=== PATIENT | male | born 1970 | race Caucasian/White ===

== ENCOUNTER 2022-07-22 10:24 | Emergency (ER) | payer OTHER ==
[2022-07-22] MEDS ORDERED: ONDANSETRON ODT 4 MG TAB PO STA (10:43)
[2022-07-22] MEDS ORDERED: KETOROLAC 15 MG/ML 1 ML VIAL IM STA (10:43)
--- NOTE | 2022-07-22 10:45 | ED ---
General Adult HPI - General Stated complaint: Mental Health Time Seen by Provider: 07/22/22 10:27 Source: patient, RN notes reviewed, old records reviewed - History of Present Illness Initial comments: This is a 52-year-old male who presents emergency department from the jail under a petition. Patient was there and making statements that he wanted to harm himself. Patient told me he does want harm himself because he cannot look at the world anymore because he feels so many panic things going on and he doesn't want to be cold and distant and so he would rather be . Patient denies doing any drugs or alcohol he does again living in jail. Patient states his whole body always hurts but no new pain no cough no fever. Patient denies any chest pain or difficulty breathing. - Related Data Home Medications Medication Instructions Recorded Confirmed ALPRAZolam [Xanax] 0.5 mg PO TID@0800,1600,2200 07/22/22 07/22/22 Acetaminophen Tab [Tylenol] 650 mg PO Q6H PRN 07/22/22 07/22/22 Albuterol Sulfate [Ventolin HFA] 2 puff INHALATION RT-Q6H PRN 07/22/22 07/22/22 Aspirin EC [Ecotrin Low Dose] 81 mg PO DAILY 07/22/22 07/22/22 Atorvastatin [Lipitor] 40 mg PO HS@199907/22/22 07/22/22 Buprenorphine [Butrans 15 MCG/HR] 1 patch TRANSDERM TH@199907/22/22 07/22/22 Colchicine 0.6 mg PO BID@08,199907/22/22 07/22/22 Famotidine [Pepcid] 20 mg PO DAILY@79907/22/22 07/22/22 Fluticasone/Vilanterol [Breo 1 puff INHALATION RT-DAILY 07/22/22 07/22/22 Ellipta 200-25 Mcg Inhaler] Furosemide [Lasix] 40 mg PO DAILY@79907/22/22 07/22/22 Ibuprofen [Motrin] 600 mg PO Q6H PRN 07/22/22 07/22/22 Melatonin 10 mg PO HS 07/22/22 07/22/22 Menthol [Biofreeze] 1 applic TOPICAL Q4H PRN 07/22/22 07/22/22 Montelukast [Singulair] 10 mg PO HS@199907/22/22 07/22/22 Multivitamins, Thera [Multivitamin 1 tab PO DAILY@0807/22/22 07/22/22 (formulary)] Ondansetron [Zofran] 4 mg PO Q6H PRN 07/22/22 07/22/22 Potassium Chloride ER [K-Dur 20] 20 meq PO DAILY@0800 07/22/22 07/22/22 Sennosides/Docusate Sodium [Senna 1 tab PO DAILY PRN 07/22/22 07/22/22 Plus 8.6-50 mg Tablet] Sertraline [Zoloft] 50 mg PO DAILY@0800 07/22/22 07/22/22 Sertraline [Zoloft] 100 mg PO DAILY@0800 07/22/22 07/22/22 Topiramate [Topamax] 25 mg PO DAILY@0800 07/22/22 07/22/22 Topiramate [Topamax] 100 mg PO HS@199907/22/22 07/22/22 amLODIPine 10 mg PO DAILY 07/22/22 07/22/22 lamoTRIgine [LaMICtal] 25 mg PO BID@0800,199907/22/22 07/22/22 methocarbamoL [Robaxin] 500 mg PO Q8HR@0000,0800,1600 07/22/22 07/22/22 polyethylene glycoL 3350 [Miralax] 17 gm PO DAILY PRN 07/22/22 07/22/22 traMADol HCL 50 mg PO Q6H PRN 07/22/22 07/22/22 Allergies Allergy/AdvReac Type Severity Reaction Status Date / Time No Known Allergies Allergy Verified 07/22/22 10:53 Review of Systems ROS Statement: Those systems with pertinent positive or pertinent negative responses have been documented in the HPI. ROS Other: All systems not noted in ROS Statement are negative. General Exam - General Exam Comments Initial Comments: GENERAL: Patient is well-developed and well-nourished. Patient is nontoxic and well- hydrated and is in mild distress. ENT: Neck is soft and supple. No significant lymphadenopathy is noted. Oropharynx is clear. Moist mucous membranes. Neck has full range of motion without eliciting any pain. EYES: The sclera were anicteric and conjunctiva were pink and moist. Extraocular movements were intact and pupils were equal round and reactive to light. Eyelids were unremarkable. PULMONARY: Unlabored respirations. Good breath sounds bilaterally. No audible rales rhonchi or wheezing was noted. CARDIOVASCULAR: There is a regular rate and rhythm without any murmurs gallops or rubs. ABDOMEN: Soft and nontender with normal bowel sounds. SKIN: Skin is clear with no lesions or rashes and otherwise unremarkable. NEUROLOGIC: Patient is alert and oriented x3. Cranial nerves II through XII are grossly intact. Motor and sensory are also intact. Normal speech, volume and content. Symmetrical smile. MUSCULOSKELETAL: Normal extremities with adequate strength and full range of motion. LYMPHATICS: No significant lymphadenopathy is noted PSYCHIATRIC: Normal psychiatric evaluation. Course Vital Signs 07/22/22 07/22/22 10:32 11:15 Temperature 98.5 F Pulse Rate 79 Respiratory 22 Rate Blood Pressure 146/77 O2 Sat by Pulse 98 Oximetry Medical Decision Making - Medical Decision Making Was pt. sent in by a medical professional or institution (, PA, BUTCHER SCULLION, urgent care, hospital, or jail...) When possible be specific @ -Patient was sent in for evaluation from the jail Did you speak to anyone other than the patient for history (EMS, parent, family, police, friend...)? What history was obtained from this source @ -No Did you review nursing and triage notes (agree or disagree)? Why? @ -I reviewed and agree with nursing and triage notes Were old charts reviewed (outside hosp., previous admission, EMS record, old EKG, old radiological studies, urgent care reports/EKG's, jail records)? Report findings @ -No old charts were reviewed Differential Diagnosis (chest pain, altered mental status, abdominal pain women, abdominal pain men, vaginal bleeding, weakness, fever, dyspnea, syncope, headache, dizziness, GI bleed, back pain, seizure, CVA, palpatations, mental health, musculoskeletal)? @ -Differential Mental Health Depression, anxiety, bipolar, psychosis, schizophrenia, borderline personality, situational depression, adjustment disorder, behavioral disorder, brain tumor, malingering, substance abuse, encephalopathy, medication reaction, dementia, hypothyroidism, degenerative neurologic disorder, lupus.... This is not meant to be all-inclusive list EKG interpreted by me (3pts min.). @ -As above X-rays interpreted by me (1pt min.). @ -None done CT interpreted by me (1pt min.). @ -None done U/S interpreted by me (1pt. min.). @ -None done What testing was considered but not performed or refused? (CT, X-rays, U/S, labs)? Why? @ -None What meds were considered but not given or refused? Why? @ -None Did you discuss the management of the patient with other professionals (professionals i.e. , PA, BUTCHER SCULLION, lab, RT, psych nurse, high school social studies tutor, barrel ribs solderer, teacher, enforcement safety officer, telephonic case manager)? Give summary @ -I spoke with the psych nurse about patient's admission she agreed the patient needed to be admitted but he will need transfer because he is over R units weight limit Was smoking cessation discussed for >3mins.? @ -No Was critical care preformed (if so, how long)? @ -No Were there social determinants of health that impacted care today? How? (Homelessness, low income, unemployed, alcoholism, drug addiction, transportation, low edu. Level, literacy, decrease access to med. care, senior living, rehab)? @ -No Was there de-escalation of care discussed even if they declined (Discuss DNR or withdrawal of care, Hospice)? DNR status @ -No What co-morbidities impacted this encounter? (DM, HTN, Smoking, COPD, CAD, Cancer, CVA, ARF, Chemo, Hep., AIDS, mental health diagnosis, sleep apnea, morbid obesity)? @ -None Was patient admitted / discharged? Hospital course, mention meds given and route, prescriptions, significant lab abnormalities, going to OR and other pertinent info. @ -Patient was seen by EPS and I filled out a clinical certification the patient will need to be admitted but will need to be an outside facility because of the patient's weight. Undiagnosed new problem with uncertain prognosis? @ -No Drug Therapy requiring intensive monitoring for toxicity (Heparin, Nitro, Insulin, Cardizem)? @ -No Were any procedures done? @ -No Diagnosis/symptom? @ -Ideations Acute, or Chronic, or Acute on Chronic? @ -Acute Uncomplicated (without systemic symptoms) or Complicated (systemic symptoms)? @ -Complicated Side effects of treatment? @ -No Exacerbation, Progression, or Severe Exacerbation? @ -No Poses a threat to life or bodily function? How? (Chest pain, [place], [place], pneumonia, PE, COPD, DKA, ARF, appy, cholecystitis, CVA, Diverticulitis, Homicidal, Suicidal, threat to staff... and all critical care pts) @ -S patient could harm himself if he doesn't get appropriate treatment Diagnosis/symptom? @ -Depression Acute, or Chronic, or Acute on Chronic? @ -Chronic Uncomplicated (without systemic symptoms) or Complicated (systemic symptoms)? @ -default Side effects of treatment? @ -none Exacerbation, Progression, or Severe Exacerbation] @ -no Poses a threat to life or bodily function? @ -no - Lab Data Lab Results 07/22/22 Range/Units 12:00 Urine Opiates Screen Not Detected (NotDetected) Ur Oxycodone Screen Not Detected (NotDetected) Urine Methadone Screen Not Detected (NotDetected) Ur Propoxyphene Screen Not Detected (NotDetected) Ur Barbiturates Screen Not Detected (NotDetected) U Tricyclic Antidepress Not Detected (NotDetected) Ur Phencyclidine Scrn Not Detected (NotDetected) Ur Amphetamines Screen Not Detected (NotDetected) U Methamphetamines Scrn Not Detected (NotDetected) U Benzodiazepines Scrn Detected H (NotDetected) Urine Cocaine Screen Not Detected (NotDetected) U Marijuana (THC) Screen Detected H (NotDetected) Disposition Clinical Impression: Depression, Suicidal ideation Disposition: TRANSFER TO PSYCH HOSP/UNIT Referrals: None,Stated [Primary Care Provider] - 1-2 days Time of Disposition: 14:50
[2022-07-22 11:15] VITALS: TEMP 98.5
[2022-07-22 12:34] LABS: Amphetamine Screen,Urine Not Detected (NotDetected); Barbiturate Screen,Urine Not Detected (NotDetected); Benzodiazepines Screen,Urine Detected (NotDetected); Cocaine Screen,Urine Not Detected (NotDetected); Methadone Screen, Urine Not Detected (NotDetected); Opiate Screen,Urine Not Detected (NotDetected); Oxycodone Screen, Urine Not Detected (NotDetected); Phencyclidine Screen,Urine Not Detected (NotDetected); Tricyclic Antidepressant,Urine Not Detected (NotDetected); Urn Cannabinoid Scrn Detected (NotDetected)
[2022-07-22] MEDS ORDERED: traMADol 50 MG TAB PO STA (16:32)
[2022-07-22 20:27] LABS: HCT 41.3 % (39.0-53.0); MCH 30.4 pg (25.0-35.0); MCHC 33.9 g/dL (31.0-37.0); MCV 89.8 fL (80.0-100.0); Mean Platelet Volume 8.3; Platelet Count 176 k/uL (150-450)
[2022-07-22 20:32] LABS: ALT 90 U/L (4-49); AST 61 U/L (17-59); African American GFR (CKD) >90 (>60 ml/min/1.73 sqM); Albumin 3.6 g/dL (3.5-5.0); Alkaline Phosphatase 107 U/L (38-126); Anion Gap 6 mmol/L; Blood Urea Nitrogen 16 mg/dL (9-20); Calcium 8.7 mg/dL (8.4-10.2); Carbon Dioxide 26 mmol/L (22-30); Chloride 108 mmol/L (98-107); Glucose 110 mg/dL (74-99); Non-African American GFR(CKD) >90 (>60 ml/min/1.73 sqM); Potassium 4.2 mmol/L (3.5-5.1); Sodium 140 mmol/L (137-145); Total Bilirubin 0.4 mg/dL (0.2-1.3); Total Protein 6.6 g/dL (6.3-8.2)
[2022-07-22 20:46] LABS: Eosinophils # (M) 0.25 k/uL (0-0.7); Lymphocytes # (M) 1.35 k/uL (1.0-4.8); Monocytes # (M) 0.65 k/uL (0-1.0); Neutrophils # (M) 2.75 k/uL (1.3-7.7); Neutrophils % (M) 55 %; Nucleated Red Blood Cells 0 /100 WBC (0-0); Polychromasia Present; Total Cells Counted 100
[2022-07-22 20:47] LABS: Large Platelets Present
[2022-07-22] MEDS ORDERED: traMADol 50 MG TAB PO PRN (21:06)
[2022-07-22] MEDS ORDERED: ACETAMINOPHEN TAB 325 MG TAB PO PRN (21:06)
[2022-07-22] MEDS ORDERED: ALBUTEROL HFA INHALER INHALATION PRN (21:06)
[2022-07-22] MEDS: ONDANSETRON 4 MG TAB PO PRN (22:36)
[2022-07-22] MEDS: ALPRAZolam 0.5 MG TAB PO SCH (22:36)
[2022-07-23] MEDS: methocarbamoL 500 MG TAB PO SCH ×2 (00:36→09:27)
[2022-07-23] MEDS ORDERED: TOPIRAMATE 25 MG TAB PO SCH (08:00)
[2022-07-23] MEDS ORDERED: FAMOTIDINE 20 MG TAB PO SCH (08:00)
[2022-07-23] MEDS ORDERED: SYMBICORT 160-4.5 MCG INHALER INHALATION SCH (08:00)
[2022-07-23] MEDS ORDERED: SERTRALINE 100 MG TAB PO SCH (08:00)
[2022-07-23] MEDS ORDERED: lamoTRIgine 25 MG TAB PO SCH (08:00)
[2022-07-23] MEDS ORDERED: FUROSEMIDE 40 MG TAB PO SCH (08:00)
[2022-07-23] MEDS ORDERED: ASPIRIN 81 MG PO SCH (09:00)
[2022-07-23] MEDS ORDERED: amLODIPine 10 MG TAB PO SCH (09:00)
[2022-07-23] MEDS: ALPRAZolam 0.5 MG TAB PO SCH (09:00)
[2022-07-23 09:14] LABS: Appearance,Urine Clear (Clear); Bilirubin,Urine Negative (Negative); Blood,Urine Negative (Negative); Color,Urine Yellow; Glucose,Urine (UA) Negative (Negative); Ketones,Urine Negative (Negative); Leukocyte Esterase,Urine Negative (Negative); Nitrite,Urine Negative (Negative); Protein,Urine Negative (Negative); Urobilinogen,Urine <2.0 mg/dL (<2.0)
[2022-07-23] MEDS: ONDANSETRON 4 MG TAB PO PRN (09:25)
[2022-07-23 14:40] VITALS: BP 158/88; PULSE 68; RESP 18
[2022-07-23] MEDS ORDERED: MONTELUKAST 10 MG TAB PO SCH (20:00)
[2022-07-23] MEDS ORDERED: TOPIRAMATE 100 MG TAB PO SCH (20:00)
[2022-07-23] MEDS ORDERED: ATORVASTATIN 40 MG TAB PO SCH (20:00)
[2022-07-23] MEDS ORDERED: MELATONIN 5 MG TABLET PO SCH (21:00)
[2022-07-29] MEDS ORDERED: BUPRENORPHINE TRANSDERM SCH (20:00)
== END 2022-07-23 16:03 | disposition home or self-care (01) ==
LOC: EC 10:24
DX: F32.A Depression, unspecified (principal); R45.851 Suicidal ideations; Z20.822 Contact with and (suspected) exposure to COVID-19
CPT/HCPCS: 99285 ×2; 96372; 82075; 90471; 36415; 80053; 85025; 81003; 80306; 87635; J1885

== ENCOUNTER 2022-10-19 00:04 | Observation (INO) | payer MEDICARE, OTHER ==
[2022-10-19] MEDS ORDERED: ASPIRIN 81 MG PO STA (00:53)
[2022-10-19] MEDS ORDERED: MAG HYDROX/AL HYDROX/SIMETH 30 ML, HYOSCYAMINE ELIXIR 10 ML, LIDOCAINE 2% GLYDO JELLY 1... PO STA ×3 (00:55)
--- NOTE | 2022-10-19 00:58 | ED ---
Chest Pain HPI - General Source: patient Mode of arrival: EMS Limitations: no limitations - History of Present Illness MD Complaint: chest pain -: hour(s) Onset: during rest Pain Location: substernal Pain Radiation: LUE Severity: severe Quality: aching Consistency: constant Improves With: nothing Worsens With: nothing Anginal Symptoms: nausea Treatments Prior to Arrival: none <Marcus Terry - Last Filed: 10/19/22 07:22> <Reji Ramon - Last Filed: 10/19/22 07:55> - General Chief Complaint: Chest Pain Stated Complaint: Chest pain - History of Present Illness Initial Comments: This patient is 52-year-old man who presents evaluation for substernal aching pain. At times it has a squeezing component at times it has a burning component. He has had episodes of this going back for a couple of days now. She states that it will come on and lasts for few hours. Tonaditi's episode was different there was something that felt like he was going toward his left shoulder. He has had some nausea. No diaphoresis, dyspnea, vomiting. Patient denies previous cardiac testing. (Marcus eTrry) - Related Data Home Medications Medication Instructions Recorded Confirmed ALPRAZolam [Xanax] 0.5 mg PO TID@0800,1600,2200 07/22/22 07/22/22 Acetaminophen Tab [Tylenol] 650 mg PO Q6H PRN 07/22/22 07/22/22 Albuterol Sulfate [Ventolin HFA] 2 puff INHALATION RT-Q6H PRN 07/22/22 07/22/22 Aspirin EC [Ecotrin Low Dose] 81 mg PO DAILY 07/22/22 07/22/22 Atorvastatin [Lipitor] 40 mg PO HS@199907/22/22 07/22/22 Buprenorphine [Butrans 15 MCG/HR] 1 patch TRANSDERM TH@199907/22/22 07/22/22 Colchicine 0.6 mg PO BID@08,199907/22/22 07/22/22 Famotidine [Pepcid] 20 mg PO DAILY@0800 07/22/22 07/22/22 Fluticasone/Vilanterol [Breo 1 puff INHALATION RT-DAILY 07/22/22 07/22/22 Ellipta 200-25 Mcg Inhaler] Furosemide [Lasix] 40 mg PO DAILY@0807/22/22 07/22/22 Ibuprofen [Motrin] 600 mg PO Q6H PRN 07/22/22 07/22/22 Melatonin 10 mg PO HS 07/22/22 07/22/22 Menthol [Biofreeze] 1 applic TOPICAL Q4H PRN 07/22/22 07/22/22 Montelukast [Singulair] 10 mg PO HS@199907/22/22 07/22/22 Multivitamins, Thera [Multivitamin 1 tab PO DAILY@79907/22/22 07/22/22 (formulary)] Ondansetron [Zofran] 4 mg PO Q6H PRN 07/22/22 07/22/22 Potassium Chloride ER [K-Dur 20] 20 meq PO DAILY@79907/22/22 07/22/22 Sennosides/Docusate Sodium [Senna 1 tab PO DAILY PRN 07/22/22 07/22/22 Plus 8.6-50 mg Tablet] Sertraline [Zoloft] 50 mg PO DAILY@79907/22/22 07/22/22 Sertraline [Zoloft] 100 mg PO DAILY@79907/22/22 07/22/22 Topiramate [Topamax] 25 mg PO DAILY@79907/22/22 07/22/22 Topiramate [Topamax] 100 mg PO HS@199907/22/22 07/22/22 amLODIPine 10 mg PO DAILY 07/22/22 07/22/22 lamoTRIgine [LaMICtal] 25 mg PO BID@0800,199907/22/22 07/22/22 methocarbamoL [Robaxin] 500 mg PO Q8HR@0000,0800,1600 07/22/22 07/22/22 polyethylene glycoL 3350 [Miralax] 17 gm PO DAILY PRN 07/22/22 07/22/22 traMADol HCL 50 mg PO Q6H PRN 07/22/22 07/22/22 Allergies Allergy/AdvReac Type Severity Reaction Status Date / Time No Known Allergies Allergy Verified 10/19/22 00:26 Review of Systems ROS Other: All systems not noted in ROS Statement are negative. Constitutional: Denies: fever, chills Respiratory: Denies: cough, dyspnea Cardiovascular: Reports: chest pain. Denies: palpitations, edema Gastrointestinal: Reports: nausea. Denies: abdominal pain, vomiting, diarrhea Genitourinary: Denies: dysuria, hematuria Musculoskeletal: Denies: back pain Skin: Denies: rash Neurological: Denies: headache, weakness, numbness <Marcus Terry - Last Filed: 10/19/22 07:22> ROS Other: All systems not noted in ROS Statement are negative. <Reji Ramon - Last Filed: 10/19/22 07:55> ROS Statement: Those systems with pertinent positive or pertinent negative responses have been documented in the HPI. EKG Findings - EKG Results: EKG: interpreted by ERMD, sinus rhythm (Rate 70 bpm) - Blocks, [place], Hypertrophy, ST Abn: AV and intraventricular conduction: right bundle branch block (fixed/intermittent, complete/incomplete) Repolarization changes or abnormalities: ST or T wave suggestive of ischemia <Marcus Terry - Last Filed: 10/19/22 07:22> Past Medical History Past Medical History: Chest Pain / Angina, Heart Failure, Hyperlipidemia, Hypertension Additional Past Medical History / Comment(s): cellulitis, gout, diverticulitis History of Any Multi-Drug Resistant Organisms: None Reported Past Surgical History: No Surgical Hx Reported Past Psychological History: Anxiety, Bipolar, Depression Smoking Status: Never smoker Past Alcohol Use History: None Reported Past Drug Use History: None Reported <Marcus Terry - Last Filed: 10/19/22 07:22> General Exam Limitations: no limitations General appearance: alert, in no apparent distress, obese Head exam: Present: atraumatic, normocephalic Eye exam: Present: normal appearance. Absent: scleral icterus, conjunctival injection Neck exam: Present: normal inspection Respiratory exam: Present: normal lung sounds bilaterally. Absent: respiratory distress, wheezes, rales, rhonchi, stridor Cardiovascular Exam: Present: regular rate, normal rhythm, normal heart sounds. Absent: systolic murmur, diastolic murmur, rubs, gallop GI/Abdominal exam: Present: soft. Absent: distended, tenderness, guarding, rebound, rigid, mass Extremities exam: Present: normal inspection, normal capillary refill. Absent: pedal edema, calf tenderness Back exam: Present: normal inspection. Absent: CVA tenderness (R), CVA tenderness (L) Neurological exam: Present: alert Skin exam: Present: warm, dry, intact, normal color. Absent: rash <Marcus Terry - Last Filed: 10/19/22 07:22> Course Vital Signs 10/19/22 10/19/22 00:06 01:44 Pulse Rate 79 82 Respiratory 20 18 Rate Blood Pressure 122/72 113/67 O2 Sat by Pulse 96 94 L Oximetry Chest Pain MDM <RamonDustin zarateReji - Last Filed: 10/19/22 07:55> - MDM Was pt. sent in by a medical professional or institution (, PA, EGG SETTER, urgent care, hospital, or half-way...) When possible be specific @ -[No] Did you speak to anyone other than the patient for history (EMS, parent, family, police, friend...)? What history was obtained from this source @ -Was signed out to me by Dr. Herron Did you review nursing and triage notes (agree or disagree)? Why? @ -[I reviewed and agree with nursing and triage notes] Were old charts reviewed (outside hosp., previous admission, EMS record, old EKG, old radiological studies, urgent care reports/EKG's, half-way records)? Report findings @ -I reviewed prior charts prior lab work Differential Diagnosis (chest pain, altered mental status, abdominal pain women, abdominal pain men, vaginal bleeding, weakness, fever, dyspnea, syncope, headache, dizziness, GI bleed, back pain, seizure, CVA, palpatations, mental hea lth, musculoskeletal)? @ -Differential Chest Pain: Stable Angina, Unstable Angina, STEMI, NSTEMI Aortic Dissection, Pneumothorax, Musculoskeletal, Esophageal Spasm GERD, Cholecystitis, Pancreatitis, Zoster, this is not meant to be an all-inclusive list. EKG interpreted by me (3pts min.). @ -[As above] X-rays interpreted by me (1pt min.). @ -Chest x-ray shows no acute abnormality CT interpreted by me (1pt min.). @ -[None done] U/S interpreted by me (1pt. min.). @ -[None done] What testing was considered but not performed or refused? (CT, X-rays, U/S, labs)? Why? @ -[None] What meds were considered but not given or refused? Why? @ -[None] Did you discuss the management of the patient with other professionals (professionals i.e. , PA, EGG SETTER, lab, RT, psych nurse, social work instructor, engineer, teacher, community service officer coordinator, caser)? Give summary @ -I went in the room to speak to the patient was chest pain he says is been intermittent for the last 2 days because of some shortness of breath with some diaphoresis and occasionally nausea. Patient states currently the chest pain has come back. Patient states she also has high blood pressure high cholesterol he quit smoking about a year ago. Patient's d-dimer was mildly elevated and the VQ scan has been admitted I spoke with some physicians and they agreed to admit the patient admitted the patient wrote admitting orders Was smoking cessation discussed for >3mins.? @ -[No] Was critical care preformed (if so, how long)? @ -[No] Were there social determinants of health that impacted care today? How? (Homelessness, low income, unemployed, alcoholism, drug addiction, transportation, low edu. Level, literacy, decrease access to med. care, [facility], rehab)? @ -[No] Was there de-escalation of care discussed even if they declined (Discuss DNR or withdrawal of care, Hospice)? DNR status @ -[No] What co-morbidities impacted this encounter? (DM, HTN, Smoking, COPD, CAD, Cancer, CVA, ARF, Chemo, Hep., AIDS, mental health diagnosis, sleep apnea, morbid obesity)? @ -[None] Was patient admitted / discharged? Hospital course, mention meds given and route, prescriptions, significant lab abnormalities, going to OR and other pertinent info. @ -Dr. Terry saw the patient initially and so the patient had 2 negative troponins patient continued to have chest pressure which associated with shortness of breath and diaphoresis. Patient is morbidly obese with high blood pressure high cholesterol and quit smoking only a year ago. I spoke with some physicians that he agreed to admit the patient admitted the patient wrote admitting orders Undiagnosed new problem with uncertain prognosis? @ -[No] Drug Therapy requiring intensive monitoring for toxicity (Heparin, Nitro, Insulin, Cardizem)? @ -[No] Were any procedures done? @ -[No] Diagnosis/symptom? @ -Chest pain Acute, or Chronic, or Acute on Chronic? @ -Acute Uncomplicated (without systemic symptoms) or Complicated (systemic symptoms)? @ -Complicated Side effects of treatment? @ -[No] Exacerbation, Progression, or Severe Exacerbation? @ -[No] Poses a threat to life or bodily function? How? (Chest pain, USA, [place], pneumonia, PE, COPD, DKA, ARF, appy, cholecystitis, CVA, Diverticulitis, Homicidal, Suicidal, threat to staff... and all critical care pts) @ -Yes this could lead to an MRI was completed and organ dysfunction (Reji Ramon) Disposition <Marcus Terry - Last Filed: 10/19/22 07:22> Time of Disposition: 07:55 <Reji Ramon - Last Filed: 10/19/22 07:55> Clinical Impression: Chest pain Disposition: ADMITTED IP TO THIS HOSP Referrals: Nonstaff,Physician [Primary Care Provider] - 1-2 days
[2022-10-19 01:36] LABS: ALT 64 U/L (4-49); AST 56 U/L (17-59); African American GFR (CKD) >90 (>60 ml/min/1.73 sqM); Albumin 3.8 g/dL (3.5-5.0); Alkaline Phosphatase 93 U/L (38-126); Anion Gap 7 mmol/L; Blood Urea Nitrogen 11 mg/dL (9-20); Calcium 8.6 mg/dL (8.4-10.2); Carbon Dioxide 23 mmol/L (22-30); Chloride 107 mmol/L (98-107); Glucose 106 mg/dL (74-99); Magnesium 2.1 mg/dL (1.6-2.3); Non-African American GFR(CKD) >90 (>60 ml/min/1.73 sqM); Partial Thromboplastin Time 25.5 sec (22.0-30.0); Potassium 3.7 mmol/L (3.5-5.1); Prothrombin Time 10.3 sec (9.0-12.0); Sodium 137 mmol/L (137-145); Total Bilirubin 0.6 mg/dL (0.2-1.3); Total Protein 6.9 g/dL (6.3-8.2)
[2022-10-19 01:50] LABS: Basophils % (A) 1 %; Eosinophils # (A) 0.3 k/uL (0-0.7); Eosinophils % (A) 6 %; HCT 40.6 % (39.0-53.0); HGB 13.5 gm/dL (13.0-17.5); Lymphocytes % (A) 20 %; MCH 31.1 pg (25.0-35.0); MCHC 33.2 g/dL (31.0-37.0); MCV 93.6 fL (80.0-100.0); Mean Platelet Volume 8.1; Monocytes # (A) 0.8 k/uL (0-1.0); Monocytes % (A) 16 %; Neutrophils # (A) 2.8 k/uL (1.3-7.7); Neutrophils % (A) 54 %; Platelet Count 169 k/uL (150-450); RBC 4.33 m/uL (4.30-5.90); RDW 13.9 % (11.5-15.5); WBC 5.1 k/uL (3.8-10.6)
--- NOTE | 2022-10-19 02:10 | XR ---
EXAM: XR Chest, 2 Views CLINICAL HISTORY: ITS.REASON XR Reason: Chest Pain TECHNIQUE: Frontal and lateral views of the chest. COMPARISON: No relevant prior studies available. FINDINGS: Lungs: Vascular congestion. Pleural space: Unremarkable. No pneumothorax. No pleural effusions. Heart: Mild enlargement of cardiac silhouette. Mediastinum: Unremarkable. Bones/joints: No acute osseous abnormalities. IMPRESSION: 1. Vascular congestion. 2. Mild enlargement of cardiac silhouette.
[2022-10-19] MEDS ORDERED: NITROGLYCERIN SL TABS 0.4 MG TAB SUBLINGUAL PRN (07:56)
--- NOTE | 2022-10-19 10:54 | P.CRDCN ---
History of Present Illness History of present illness: HISTORY OF PRESENT ILLNESS: This is a 52-year-old male with a past medical history significant for palpitations, hypertension, hyperlipidemia, chronic shortness of breath, former nicotine dependence, and morbid obesity with a BMI of 54.2. Patient does not follow with a foreign car mechanic. We have been asked to see the patient in consultation for chest pain. Patient examined at the bedside. Patient states he began having chest pain about 5 days ago. He states the pain is right in the middle of his chest. He states it feels like the pain is in his esophagus. He states that when he swallows food his chest begins to hurt. He states that the pain is also worse when he is burping. He states the pain usually occurs with eating. He reports mild shortness of breath which she states is at his baseline. Patient states he is a former cigarette smoker and quit smoking 1-1/2 years ago. The patient states he had a stress test approximately 5 years ago which was negative to his knowledge. * EKG reveals sinus mechanism T-wave inversions in lead 3, V1V3. ST depression in V4. No previous EKG available for comparison * Chest xray vascular congestion. Mild enlargement of cardiac silhouette. * Laboratory data: WBC 5.1. Hemoglobin 13.5. Platelet count 169. D-dimer 1.51. Sodium 137. Potassium 3.7. BUN 11. Creatinine 0.68. Troponin negative 2. * Current home cardiac medication list has not been updated at the time of examination REVIEW OF SYSTEMS: At the time of my exam: CONSTITUTIONAL: Denies fever or chills. HEENT: Denies blurred vision, vision changes, or eye pain. Denies hemoptysis CARDIOVASCULAR: Denies chest pain. Denies orthopnea. Denies PND. Denies palpitations RESPIRATORY: Reports shortness of breath. GASTROINTESTINAL: Denies abdominal pain. Denies nausea or vomiting. HEMATOLOGIC: Denies bleeding disorders. GENITOURINARY: Denies any blood in urine. SKIN: Denies pruitis. Denies rash. PHYSICAL EXAM: VITAL SIGNS: Reviewed. GENERAL: Well-developed in no acute distress. HEENT: Head is normocephalic. Pupils are equal, round. Sclerae anicteric. Mucous membranes of the mouth are moist. Neck supple. No JVD or thyromegaly LUNGS: Respirations even and unlabored. Lungs essentially clear to auscultation bilaterally. HEART: Regular rate and rhythm. S1 and S2 heard. ABDOMEN: Soft. Nondistended. Nontender. EXTREMITIES: Normal range of motion. No clubbing or cyanosis. Peripheral pulses intact. No lower extremity edema NEUROLOGIC: Awake and alert. Oriented x 3. ASSESSMENT: Chest pain, troponins negative 2, appears to be GI in etiology as patient sta belkis his pain occurs when he is eating and swallowing food Abnormal EKG, no previous EKG available for comparison Elevated d-dimer, rule out pulmonary embolism Hypertension Hyperlipidemia History of palpitations Chronic shortness of breath Former nicotine dependence Morbid obesity: BMI 54.2 PLAN: An acute coronary event has been ruled out VQ scan has been ordered secondary to elevated d-dimer Obtain 2-D echo to assess cardiac structure and function Resume home cardiac medications when patient's medication list has been verified Further recommendations pending patient's course Nurse practitioner note has been reviewed by physician. Signing provider agrees with the documented findings, assessment, and plan of care. Past Medical History Past Medical History: Chest Pain / Angina, Heart Failure, Hyperlipidemia, Hypertension Additional Past Medical History / Comment(s): cellulitis, gout, diverticulitis History of Any Multi-Drug Resistant Organisms: None Reported Past Surgical History: No Surgical Hx Reported Past Psychological History: Anxiety, Bipolar, Depression Smoking Status: Never smoker Past Alcohol Use History: None Reported Past Drug Use History: None Reported Medications and Allergies Home Medications Medication Instructions Recorded Confirmed Type ALPRAZolam [Xanax] 0.5 mg PO TID@0800,1600,2200 07/22/22 07/22/22 History Acetaminophen Tab [Tylenol] 650 mg PO Q6H PRN 07/22/22 07/22/22 History Albuterol Sulfate [Ventolin HFA] 2 puff INHALATION RT-Q6H PRN 07/22/22 07/22/22 History Aspirin EC [Ecotrin Low Dose] 81 mg PO DAILY 07/22/22 07/22/22 History Atorvastatin [Lipitor] 40 mg PO HS@199907/22/22 07/22/22 History Buprenorphine [Butrans 15 MCG/HR] 1 patch TRANSDERM TH@199907/22/22 07/22/22 History Colchicine 0.6 mg PO BID@0800,199907/22/22 07/22/22 History Famotidine [Pepcid] 20 mg PO DAILY@0800 07/22/22 07/22/22 History Fluticasone/Vilanterol [Breo 1 puff INHALATION RT-DAILY 07/22/22 07/22/22 History Ellipta 200-25 Mcg Inhaler] Furosemide [Lasix] 40 mg PO DAILY@0800 07/22/22 07/22/22 History Ibuprofen [Motrin] 600 mg PO Q6H PRN 07/22/22 07/22/22 History Melatonin 10 mg PO HS 07/22/22 07/22/22 History Menthol [Biofreeze] 1 applic TOPICAL Q4H PRN 07/22/22 07/22/22 History Montelukast [Singulair] 10 mg PO HS@199907/22/22 07/22/22 History Multivitamins, Thera [Multivitamin 1 tab PO DAILY@0800 07/22/22 07/22/22 History (formulary)] Ondansetron [Zofran] 4 mg PO Q6H PRN 07/22/22 07/22/22 History Potassium Chloride ER [K-Dur 20] 20 meq PO DAILY@0800 07/22/22 07/22/22 History Sennosides/Docusate Sodium [Senna 1 tab PO DAILY PRN 07/22/22 07/22/22 History Plus 8.6-50 mg Tablet] Sertraline [Zoloft] 50 mg PO DAILY@0800 07/22/22 07/22/22 History Sertraline [Zoloft] 100 mg PO DAILY@0807/22/22 07/22/22 History Topiramate [Topamax] 25 mg PO DAILY@0807/22/22 07/22/22 History Topiramate [Topamax] 100 mg PO HS@199907/22/22 07/22/22 History amLODIPine 10 mg PO DAILY 07/22/22 07/22/22 History lamoTRIgine [LaMICtal] 25 mg PO BID@0800,199907/22/22 07/22/22 History methocarbamoL [Robaxin] 500 mg PO Q8HR@0000,0800,1600 07/22/22 07/22/22 History polyethylene glycoL 3350 [Miralax] 17 gm PO DAILY PRN 07/22/22 07/22/22 History traMADol HCL 50 mg PO Q6H PRN 07/22/22 07/22/22 History Allergies Allergy/AdvReac Type Severity Reaction Status Date / Time No Known Allergies Allergy Verified 10/19/22 00:26 Physical Exam Vitals: Vital Signs Pulse Resp BP Pulse Ox 10/19/22 01:44 82 18 113/67 94 L 10/19/22 00:06 79 20 122/72 96 Intake and Output 10/18/22 10/19/22 10/19/22 22:59 06:59 14:59 Other: Weight 181.437 kg Results 10/19/22 00:40 10/19/22 00:40 Cardiac Enzymes 10/19/22 10/19/22 10/19/22 Range/Units 00:40 00:40 04:28 AST 56 (17-59) U/L Troponin I <0.012 <0.012 (0.000-0.034) ng/mL Coagulation 10/19/22 Range/Units 00:40 PT 10.3 (9.0-12.0) sec APTT 25.5 (22.0-30.0) sec CBC 10/19/22 Range/Units 00:40 WBC 5.1 (3.8-10.6) k/uL RBC 4.33 (4.30-5.90) m/uL Hgb 13.5 (13.0-17.5) gm/dL Hct 40.6 (39.0-53.0) % Plt Count 169 (150-450) k/uL Comprehensive Metabolic Panel 10/19/22 Range/Units 00:40 Sodium 137 (137-145) mmol/L Potassium 3.7 (3.5-5.1) mmol/L Chloride 107 (98-107) mmol/L Carbon Dioxide 23 (22-30) mmol/L BUN 11 (9-20) mg/dL Creatinine 0.68 (0.66-1.25) mg/dL Glucose 106 H (74-99) mg/dL Calcium 8.6 (8.4-10.2) mg/dL AST 56 (17-59) U/L ALT 64 H (4-49) U/L Alkaline Phosphatase 93 (38-126) U/L Total Protein 6.9 (6.3-8.2) g/dL Albumin 3.8 (3.5-5.0) g/dL Current Medications Generic Name Dose Route Start Last Admin Trade Name Freq PRN Reason Stop Dose Admin Aspirin 325 mg 10/20/22 09:00 Aspirin 325 Mg Tab PO DAILY MERY Nitroglycerin 0.4 mg 10/19/22 07:56 Nitroglycerin Sl Tabs 0.4 Mg Tab SUBLINGUAL Q5M PRN Chest Pain Nitroglycerin 1 inch 10/19/22 12:00 Nitroglycerin Oint 1 Inch/Gm Packet TOPICAL Q6HR MERY Intake and Output 10/18/22 10/19/22 10/19/22 22:59 06:59 14:59 Other: Weight 181.437 kg 10/19/22 00:40 10/19/22 00:40
[2022-10-19] MEDS: amLODIPine 10 MG TAB PO SCH (11:45)
[2022-10-19] MEDS ORDERED: NITROGLYCERIN OINT 1 INCH/GM PACKET TOPICAL SCH (12:00)
--- NOTE | 2022-10-19 12:00 | NM ---
EXAMINATION TYPE: NM pul perfusion DATE OF EXAM: 10/19/2022 COMPARISON: Chest x-ray 10/19/2022 CLINICAL INDICATION: Male, 52 years old with history of R/O PE; Following administration of 5.4 mCi Tc 99m MAA. Images obtained post injection. FINDINGS: Perfusion was performed, no suspicious perfusion defects are evident. No moderate or large defects id entified. Patient was unable to tolerate ventilation. IMPRESSION: Low probability for pulmonary embolism based on modified PIOPED 2 criteria.
[2022-10-19] MEDS ORDERED: methocarbamoL 500 MG TAB PO PRN (12:12)
[2022-10-19] MEDS ORDERED: NON FORMULARY DRUG (Menthol [Biofreeze] 89 ML Gel..Ml.) TOPICAL PRN (12:12)
[2022-10-19] MEDS ORDERED: ALBUTEROL NEBULIZED 2.5 MG/3 ML INHALATION PRN (12:12)
--- NOTE | 2022-10-19 12:33 | P.HPIM ---
History of Present Illness H&P Date: 10/19/22 History of Presenting Illness: Patient is a very pleasant 52-year-old male with a past medical history of hypertension, hyperlipidemia, COPD, chronic back pain and morbid obesity. He presented to the emergency department with a chief complaint of chest pain. Patient reports he began experiencing chest pain approximately 5 days ago and states this pain comes on at rest to his midsternal chest radiating into his back, neck and into left arm. He describes this pain as a sharp, pressure, squeezing sensation. He reports this pain waxes and wanes and has been accompanied by nausea and frequent eructation. He denies knowing of anything that has made this pain better or worse. He denies having any dizziness, lightheadedness, diaphoresis, headache, fevers, chills, palpitations, increases or changes in baseline shortness of breath, abdominal pain, episodes of vomiting, or noticing any increased swelling in his lower extremities. He underwent full evaluation in the emergency department. Upon arrival vital signs stable with blood pressure 122/72, heart rate 79, respiratory rate 20, and SpO2 of 96% on room air. EKG completed showing normal sinus rhythm at 70 bpm with T- wave inversion in anterior/septal leads V1 through V3, no previous EKGs available for comparison. Chest x-ray completed in radiology report reviewed stating enlarged cardiac silhouette with vascular congestion. Labs completed and reviewed. CBC and BMP unremarkable. Troponin negative at less than 0.012. D-dimer elevated at 1.51. Order placed for VQ scan. Discussed patient complaints, physical exam findings, laboratory analysis, and imaging results in detail with the ED provider. Patient admitted under our services to observation unit with telemetry and consult placed to cardiology.. Review of systems: Pertinent positives and negatives as discussed in HPI, a complete review of sy stems was performed and all other systems are negative. Physical exam: Vital signs reviewed and stable. General: Nontoxic, no distress and appears stated age. Morbidly obese. Derm: Skin warm and dry, normal coloration for ethnicity. Head: Atraumatic, normocephalic and symmetric. Eyes: EOMs intact, no lid lag, and anicteric sclera Mouth: no lip lesions, mucus membranes moist Cardiovascular: regular rate and rhythm with normal S1S2, no murmur, positive posterior tibial pulses bilaterally, and cap refill < 2 seconds. Lungs: Respirations even, regular, and unlabored on room air. Lungs CTA bilaterally, no rhonchi, no rales, no wheezing, and no accessory muscle usage. Abdominal: soft, nontender to palpation, no guarding, no appreciable organomegaly Ext: ROM intact. No gross muscle atrophy, bilateral lower extremity nonpitting edema (patient reports at baseline), no contractures Neuro: Speech clear, face symmetrical and CN II-XII grossly intact with no noted focal neuro deficits Psych: Alert and oriented to person, place, time, and situation. Appropriate and pleasant affect. Assessment and Plan of Care: Chest pain, rule out acute coronary event Elevated d-dimer Hypertension Hyperlipidemia COPD Morbid obesity with BMI of 54.2 kg/m Chronic back pain -EKG showing normal sinus rhythm at 70 bpm with T-wave inversion in anterior/septal leads V1 through V3, no previous EKGs available for comparison. -Chest x-ray completed in radiology report reviewed stating enlarged cardiac silhouette with vascular congestion. -Labs completed and reviewed. CBC and BMP unremarkable. Troponin negative at less than 0.012. D-dimer elevated at 1.51. -VQ scan completed in radiology report reviewed stating low probability for pulmonary emboli. -Discussed patient complaints, physical exam findings, laboratory analysis, and imaging results in detail with the ED provider. -Patient admitted under our services to observation unit with telemetry. -Consult placed to cardiology, appreciate further recommendations -Telemetry monitoring -Trend troponins -Encourage heart healthy and carb consistent diet. Recommend structured outpatient weight management program. -Continue cardiac medication regimen with aspirin 81 mg daily, atorvastatin 40 mg nightly, amlodipine 10 mg daily, and lisinopril 10 mg daily. -Lipid profile with a.m. labs. -Order placed for BNP -Echocardiogram The patient is admitted with an anticipated less than 2 midnight stay for evaluation of chest pain CODE STATUS: Full code DVT prophylaxis: Heparin Discussed with: Patient, ED physician, and RN Anticipated discharge date: 24-[address]: Home Patient was seen independently by Nurse Practitioner. This document was prepared using [employer] dictation software. Please allow for er rors in rheumatologist while rare they do occur. Kee Leblanc NP rendered care for this patient independently, reviewed the findings and plan as documented in the note above. I did not physically speak with or examine the patient on this date. Past Medical History Past Medical History: Chest Pain / Angina, Heart Failure, Hyperlipidemia, Hypertension Additional Past Medical History / Comment(s): cellulitis, gout, diverticulitis History of Any Multi-Drug Resistant Organisms: None Reported Past Surgical History: No Surgical Hx Reported Past Psychological History: Anxiety, Bipolar, Depression Smoking Status: Never smoker Past Alcohol Use History: None Reported Past Drug Use History: None Reported Medications and Allergies Home Medications Medication Instructions Recorded Confirmed Type Acetaminophen Tab [Tylenol] 650 mg PO Q6H PRN 07/22/22 10/19/22 History Albuterol Sulfate [Ventolin HFA] 2 puff INHALATION RT-Q6H PRN 07/22/22 10/19/22 History Aspirin EC [Ecotrin Low Dose] 81 mg PO DAILY 07/22/22 10/19/22 History Atorvastatin [Lipitor] 40 mg PO HS 07/22/22 10/19/22 History Buprenorphine [Butrans 15 MCG/HR] 1 patch TRANSDERM WE 07/22/22 10/19/22 History Colchicine 0.6 mg PO BID 07/22/22 10/19/22 History Famotidine [Pepcid] 20 mg PO DAILY 07/22/22 10/19/22 History Fluticasone/Vilanterol [Breo 1 puff INHALATION RT-DAILY 07/22/22 10/19/22 History Ellipta 200-25 Mcg Inhaler] Furosemide [Lasix] 40 mg PO DAILY 07/22/22 10/19/22 History Ibuprofen [Motrin] 600 mg PO Q6H PRN 07/22/22 10/19/22 History Melatonin 10 mg PO HS 07/22/22 10/19/22 History Menthol [Biofreeze] 1 applic TOPICAL Q4H PRN 07/22/22 10/19/22 History Montelukast [Singulair] 10 mg PO HS 07/22/22 10/19/22 History Multivitamins, Thera [Multivitamin 1 tab PO DAILY 07/22/22 10/19/22 History (formulary)] Potassium Chloride ER [K-Dur 20] 20 meq PO DAILY 07/22/22 10/19/22 History Sennosides/Docusate Sodium [Senna 1 tab PO DAILY PRN 07/22/22 10/19/22 History Plus 8.6-50 mg Tablet] Sertraline [Zoloft] 50 mg PO DAILY 07/22/22 10/19/22 History Sertraline [Zoloft] 100 mg PO DAILY 07/22/22 10/19/22 History Topiramate [Topamax] 150 mg PO HS 07/22/22 10/19/22 History methocarbamoL [Robaxin] 500 mg PO Q8H PRN 07/22/22 10/19/22 History polyethylene glycoL 3350 [Miralax] 17 gm PO DAILY PRN 07/22/22 10/19/22 History traMADol HCL 50 mg PO Q6H PRN 07/22/22 10/19/22 History Ascorbic Acid [Vitamin C] 500 mg PO BID 10/19/22 10/19/22 History Cetirizine HCl [Zyrtec] 10 mg PO HS 10/19/22 10/19/22 History Mag Hydrox/Aluminum Hyd/Simeth 20 ml PO Q6H PRN 10/19/22 10/19/22 History [Mylanta Maximum Strength Liq] Magnesium Hydroxide [Milk of 2,400 mg PO DAILY PRN 10/19/22 10/19/22 History Magnesia] Meclizine [Antivert] 25 mg PO Q8H PRN 10/19/22 10/19/22 History Miconazole Nitrate [Lotrimin AF 1 applic TOPICAL BID 10/19/22 10/19/22 History Powder] Oxybutynin Chloride [oxyBUTYnin 20 mg PO DAILY 10/19/22 10/19/22 History chloride ER] Promethazine HCl 12.5 mg PO Q6H PRN 10/19/22 10/19/22 History Simethicone [Simethicone Chew] 80 mg PO Q4H PRN 10/19/22 10/19/22 History clonazePAM [KlonoPIN] 1 mg PO TID 10/19/22 10/19/22 History lamoTRIgine [LaMICtal] 150 mg PO DAILY 10/19/22 10/19/22 History lisinopriL [Zestril] 10 mg PO DAILY 10/19/22 10/19/22 History Allergies Allergy/AdvReac Type Severity Reaction Status Date / Time No Known Allergies Allergy Verified 10/19/22 11:39 Physical Exam Vitals: Vital Signs Pulse Resp BP Pulse Ox 10/19/22 09:00 59 L 18 127/86 97 10/19/22 01:44 82 18 113/67 94 L 10/19/22 00:06 79 20 122/72 96 Intake and Output 10/18/22 10/19/22 10/19/22 22:59 06:59 14:59 Other: Weight 181.437 kg Results CBC & Chem 7: 10/19/22 00:40 10/19/22 00:40 Labs: Abnormal Lab Results - Last 24 Hours (Table) 10/19/22 10/19/22 Range/Units 00:40 00:40 D-Dimer 1.51 H (<0.60) mg/L FEU Glucose 106 H (74-99) mg/dL ALT 64 H (4-49) U/L
[2022-10-19] MEDS: traMADol 50 MG TAB PO PRN (12:58)
[2022-10-19] MEDS: SERTRALINE 100 MG TAB PO SCH (12:58)
[2022-10-19] MEDS: SERTRALINE 50 MG TAB PO SCH (12:58)
[2022-10-19] MEDS: clonazePAM 1 MG TAB PO SCH ×2 (12:58→21:08)
--- NOTE | 2022-10-19 13:11 | CA ---
Transthoracic Echo Report Name: Jesus Tyson Age: 52 Gender: M : 1970 Exam Date: 10/19/2022 11:45 Exam Location: [facility] Ht (in): 72 Wt (lb): 400 Ordering Physician: Ledy Conti Attending/Referring Phys: [id number], Gallito Box Blank Machine Operator Helper Sharon Love [facility] Procedure CPT: Indications: LV function Cardiac Hx: Technical Quality: Very technically difficult study Contrast 1: Lumason Total Dose (mL): 5 Contrast 2: Total Dose (mL): MEASUREMENTS (Male / Female) Normal Values 2D ECHO LV Diastolic Diameter PLAX 5.4 cm 4.2 - 5.9 / 3.9 - 5.3 cm LV Systolic Diameter PLAX 4.0 cm IVS Diastolic Thickness 1.2 cm 0.6 - 1.0 / 0.6 - 0.9 cm LVPW Diastolic Thickness 1.1 cm 0.6 - 1.0 / 0.6 - 0.9 cm LV Relative Wall Thickness 0.4 M-MODE Aortic Root Diameter MM 3.6 cm LA Systolic Diameter MM 4.6 cm LA Ao Ratio MM 1.3 AV Cusp Separation MM 2.5 cm DOPPLER AV Peak Velocity 124.1 cm/s AV Peak Gradient 6.2 mmHg AV Mean Velocity 94.5 cm/s AV Mean Gradient 3.9 mmHg AV Velocity Time Integral 29.4 cm LVOT Peak Velocity 90.5 cm/s LVOT Peak Gradient 3.3 mmHg LVOT Velocity Time Integral 22.5 cm Mitral E Point Velocity 62.2 cm/s Mitral A Point Velocity 66.3 cm/s Mitral E to A Ratio 0.9 MV Deceleration Time 251.9 ms LV E' Lateral Velocity 7.1 cm/s Mitral E to LV E' Lateral Ratio 8.8 LV E' Septal Velocity 7.7 cm/s Mitral E to LV E' Septal Ratio 8.1 TR Peak Velocity 314.2 cm/s TR Peak Gradient 39.5 mmHg Right Atrial Pressure 8.0 mmHg Pulmonary Artery Systolic Pressu 47.5 mmHg Right Ventricular Systolic Press 44.5 mmHg FINDINGS Left Ventricle Moderately increased left ventricular wall thickness. Mild left ventricular dilatation. No obvious regional wall motion abnormalities. Left ventricular ejection fraction is estimated at 55-60%. Right Ventricle Severe right ventricular dilatation. Moderate pulmonary hypertension. Right Atrium Moderate right atrial dilatation. Left Atrium Mild left atrial dilatation. Mitral Valve Structurally normal mitral valve. No mitral regurgitation. Aortic Valve Trileaflet aortic valve. No aortic valve stenosis or regurgitation. Tricuspid Valve Structurally normal tricuspid valve. Mild tricuspid regurgitation. Pulmonic Valve Pulmonic valve not well visualized. Pericardium No pericardial effusion. Echo free space anterior to the right ventricle likely represents a fat pad. Aorta Normal size aortic root. CONCLUSIONS Normal LV systolic function Moderate pulmonary hypertension Dilated right ventricle Previewed by: Dr. Solis Avina MD (Electronically Signed) Final Date: 19 October 2022 13:11
[2022-10-19] MEDS: HEPARIN SODIUM,PORCINE/PF 5,000 UNIT/0.5 ML SYRINGE SQ SCH ×2 (16:29→21:08)
[2022-10-19] MEDS ORDERED: ATORVASTATIN 40 MG TAB PO SCH (20:00)
[2022-10-19] MEDS ORDERED: TOPIRAMATE 100 MG TAB PO SCH (21:00)
[2022-10-19] MEDS ORDERED: MONTELUKAST 10 MG TAB PO SCH (21:00)
[2022-10-19] MEDS ORDERED: MELATONIN 5 MG TABLET PO SCH (21:00)
[2022-10-19] MEDS: COLCHICINE 0.6 MG EACH PO SCH (21:08)
[2022-10-20 03:44] VITALS: TEMP 97.6
[2022-10-20] MEDS ORDERED: SYMBICORT 160-4.5 MCG INHALER INHALATION SCH (08:00)
[2022-10-20 08:14] VITALS: BP 106/71; PULSE 61; RESP 17
[2022-10-20 08:46] LABS: Chol/HDL Ratio 2.96 Ratio; LDL Cholesterol,Calculated 57.1 mg/dL (0.0-131.0)
[2022-10-20] MEDS: HEPARIN SODIUM,PORCINE/PF 5,000 UNIT/0.5 ML SYRINGE SQ SCH ×2 (08:46→16:13)
[2022-10-20] MEDS: amLODIPine 10 MG TAB PO SCH (08:46)
[2022-10-20] MEDS: clonazePAM 1 MG TAB PO SCH ×2 (08:46→16:13)
[2022-10-20] MEDS: SERTRALINE 50 MG TAB PO SCH (08:46)
[2022-10-20] MEDS: COLCHICINE 0.6 MG EACH PO SCH (08:47)
[2022-10-20] MEDS ORDERED: FAMOTIDINE 20 MG TAB PO SCH (09:00)
[2022-10-20] MEDS ORDERED: OXYBUTYNIN 10 MG TAB.ER.24 PO SCH (09:00)
[2022-10-20] MEDS ORDERED: lamoTRIgine 100 MG TAB PO SCH (09:00)
[2022-10-20] MEDS ORDERED: NON FORMULARY DRUG (Buprenorphine [Butrans 15 Mcg/Hr] 15 MCG/HOUR Patch) TRANSDERM SCH (09:00)
[2022-10-20] MEDS ORDERED: FUROSEMIDE 40 MG TAB PO SCH (09:00)
[2022-10-20] MEDS ORDERED: lisinopriL 10 MG TAB PO SCH (09:00)
[2022-10-20] MEDS ORDERED: ASPIRIN 325 MG TAB PO SCH (09:00)
[2022-10-20] MEDS ORDERED: ASPIRIN 81 MG PO SCH (09:00)
[2022-10-20] MEDS: SERTRALINE 100 MG TAB PO SCH (09:40)
--- NOTE | 2022-10-20 09:41 | P.PN ---
Subjective HISTORY OF PRESENT ILLNESS: This is a 52-year-old male with a past medical history significant for palpitations, hypertension, hyperlipidemia, chronic shortness of breath, former nicotine dependence, and morbid obesity with a BMI of 54.2. Patient does not follow with a prosthetic technician. We have been asked to see the patient in consultation for chest pain. Patient examined at the bedside. Patient states he began having chest pain about 5 days ago. He states the pain is right in the middle of his chest. He states it feels like the pain is in his esophagus. He states that when he swallows food his chest begins to hurt. He states that the pain is also worse when he is burping. He states the pain usually occurs with eating. He reports mild shortness of breath which she states is at his baseline. Patient states he is a former cigarette smoker and quit smoking 1-1/2 years ago. The patient states he had a stress test approximately 5 years ago which was negative to his knowledge. * EKG reveals sinus mechanism T-wave inversions in lead 3, V1V3. ST depression in V4. No previous EKG available for comparison * Chest xray vascular congestion. Mild enlargement of cardiac silhouette. * Laboratory data: WBC 5.1. Hemoglobin 13.5. Platelet count 169. D-dimer 1.51. Sodium 137. Potassium 3.7. BUN 11. Creatinine 0.68. Troponin negative 2. * Current home cardiac medication list has not been updated at the time of examination 10/20/2022 Patient examined this morning at the bedside. Patient underwent VQ scan yesterday which revealed low probability for pulmonary embolism. Echocardiogram performed revealing preserved LV systolic function. Patient continues to have chest pain that he states is worse with eating. Patient states he does not want to eat his breakfast this morning because when he eats he feels like food is getting stuck and then the pain comes up his esophagus and into his shoulder and arm. PHYSICAL EXAM: VITAL SIGNS: Reviewed. GENERAL: Well-developed in no acute distress. HEENT: Head is normocephalic. Pupils are equal, round. Sclerae anicteric. Mucous membranes of the mouth are moist. Neck supple. No JVD or thyromegaly LUNGS: Respirations even and unlabored. Lungs essentially clear to auscultation bilaterally. HEART: Regular rate and rhythm. S1 and S2 heard. ABDOMEN: Soft. Nondistended. Nontender. EXTREMITIES: Normal range of motion. No clubbing or cyanosis. Peripheral pulses intact. No lower extremity edema NEUROLOGIC: Awake and alert. Oriented x 3. ASSESSMENT: Chest pain, troponins negative 4, appears to be GI in etiology as patient states his pain occurs when he is eating and swallowing food Abnormal EKG, no previous EKG available for comparison Elevated d-dimer, rule out pulmonary embolism Hypertension Hyperlipidemia History of palpitations Chronic shortness of breath Former nicotine dependence Morbid obesity: BMI 54.2 PLAN: An acute coronary event has been ruled out Patient's chest is not cardiac in origin. Would recommend GI or general surgery consult We will sign off. Please reconsult if needed. Nurse practitioner note has been reviewed by physician. Signing provider agrees with the documented findings, assessment, and plan of care. Objective - Vital Signs Vital signs: Vital Signs Temp 97.6 F 10/20/22 07:35 Pulse 61 10/20/22 07:35 Resp 17 10/20/22 07:35 BP 106/71 10/20/22 07:35 Pulse Ox 98 10/20/22 07:45 FiO2 Intake & Output 10/19/22 10/20/22 10/20/22 18:59 06:59 18:59 Weight 181.437 kg Other: Voiding Method External Catheter External Catheter # Voids 1 - Labs CBC & Chem 7: 10/19/22 00:40 10/19/22 00:40
--- NOTE | 2022-10-20 12:58 | P.DS ---
Providers Date of admission: 10/19/22 07:58 Expected date of discharge: 10/20/22 Attending physician: Heri Mac MD Consults: 10/19/22 07:56 Consult Physician Urgent Consulting Provider: [facility] Consult Reason/Comments: Chest pain Do you want consulting provider notified?: Yes Primary care physician: Physician Nonstaff Hospital Course: Discharge Diagnosis: Chest pain, acute coronary event ruled out. Chest pain noncardiac origin. Patient to follow up outpatient with senior piping designer for further evaluation and possible EGD. Elevated d-dimer, VQ scan showing low probability of PE.. Hypertension Hyperlipidemia COPD Morbid obesity with BMI of 54.2 kg/m Chronic back pain Hospital Course: Patient is a very pleasant 52-year-old male with a past medical history of hypertension, hyperlipidemia, COPD, chronic back pain and morbid obesity. He presented to the emergency department with a chief complaint of chest pain. Patient reports he began experiencing chest pain approximately 5 days ago and states this pain comes on at rest to his midsternal chest radiating into his back, neck and into left arm. He describes this pain as a sharp, pressure, squeezing sensation. He reports this pain waxes and wanes and has been accompanied by nausea and frequent eructation. He denies knowing of anything that has made this pain better or worse. He denies having any dizziness, lightheadedness, diaphoresis, headache, fevers, chills, palpitations, increases or changes in baseline shortness of breath, abdominal pain, episodes of vomiting, or noticing any increased swelling in his lower extremities. He underwent full evaluation in the emergency department. Upon arrival vital signs stable with blood pressure 122/72, heart rate 79, respiratory rate 20, and SpO2 of 96% on room air. EKG completed showing normal sinus rhythm at 70 bpm with T- wave inversion in anterior/septal leads V1 through V3, no previous EKGs available for comparison. Chest x-ray completed in radiology report reviewed stating enlarged cardiac silhouette with vascular congestion. Labs completed and reviewed. CBC and BMP unremarkable. Troponin negative at less than 0.012. D-dimer elevated at 1.51. Order placed for VQ scan. Discussed patient complaints, physical exam findings, laboratory analysis, and imaging results in detail with the ED provider. Patient admitted under our services to observation unit with telemetry and consult placed to cardiology.. Patient monitored overnight and troponins trended all negative at less than 0.0124 draws. VQ scan completed in radiology report reviewed stating low probability for pulmonary emboli. Lipid profile normal findings. Patient does report recurrent episodes of reflux. Order placed for GI cocktail. Patient evaluated by cardiology clearing patient from cardiac perspective with no further workup at this time. Medically, patient is stable at this time, recommended to follow up outpatient with Exhaust Machine Operator for scheduling of EGD for further evaluation of reflux. [facility] facility. Patient to continue Pepcid 20 mg daily and Mylanta as needed for reflux. Physical exam: Vital signs reviewed and stable. General: Nontoxic, no distress and appears stated age. Morbidly obese. Derm: Skin warm and dry, normal coloration for ethnicity. Head: Atraumatic, normocephalic and symmetric. Eyes: EOMs intact, no lid lag, and anicteric sclera Mouth: no lip lesions, mucus membranes moist Cardiovascular: regular rate and rhythm with normal S1S2, no murmur, positive posterior tibial pulses bilaterally, and cap refill < 2 seconds. Lungs: Respirations even, regular, and unlabored on room air. Lungs CTA bilaterally, no rhonchi, no rales, no wheezing, and no accessory muscle usage. Abdominal: soft, nontender to palpation, no guarding, no appreciable organomegaly Ext: ROM intact. No gross muscle atrophy, bilateral lower extremity nonpitting edema (patient reports at baseline), no contractures Neuro: Speech clear, face symmetrical and CN II-XII grossly intact with no noted focal neuro deficits Psych: Alert and oriented to person, place, time, and situation. Appropriate and pleasant affect. A total of 32 minutes of time were spent preparing this complex discharge summary. Pt was discharged on 10/20/22 at 12:54 PM Patient was seen independently by Nurse Practitioner. This document was prepared using [place] [employer] dictation software. Please allow for errors in network announcer while rare they do occur. I reviewed the documentation as provided by the GWEN above, who is the original author of this note. I agree with the documented assessment and plan, with the following changes: none Patient Condition at Discharge: Stable Plan - Discharge Summary Discharge Rx Participant: No New Discharge Prescriptions: Continue polyethylene glycoL 3350 [Miralax] 17 gm PO DAILY PRN PRN Reason: Constipation Menthol [Biofreeze] 1 applic TOPICAL Q4H PRN PRN Reason: back muscular pain Acetaminophen Tab [Tylenol] 650 mg PO Q6H PRN PRN Reason: Fever And/ Or Pain Colchicine 0.6 mg PO BID Topiramate [Topamax] 150 mg PO HS Sertraline [Zoloft] 50 mg PO DAILY Potassium Chloride ER [K-Dur 20] 20 meq PO DAILY Famotidine [Pepcid] 20 mg PO DAILY Multivitamins, Thera [Multivitamin (formulary)] 1 tab PO DAILY Montelukast [Singulair] 10 mg PO HS Melatonin 10 mg PO HS Furosemide [Lasix] 40 mg PO DAILY Atorvastatin [Lipitor] 40 mg PO HS Promethazine HCl 12.5 mg PO Q6H PRN PRN Reason: Nausea And Vomiting Oxybutynin Chloride [oxyBUTYnin chloride ER] 20 mg PO DAILY Mag Hydrox/Aluminum Hyd/Simeth [Mylanta Maximum Strength Liq] 20 ml PO Q6H PRN PRN Reason: Gi Upset Magnesium Hydroxide [Milk of Magnesia] 2,400 mg PO DAILY PRN PRN Reason: Constipation lisinopriL [Zestril] 10 mg PO DAILY lamoTRIgine [LaMICtal] 150 mg PO DAILY clonazePAM [KlonoPIN] 1 mg PO TID Sennosides/Docusate Sodium [Senna Plus 8.6-50 mg Tablet] 1 tab PO DAILY PRN PRN Reason: Constipation Albuterol Sulfate [Ventolin HFA] 2 puff INHALATION RT-Q6H PRN PRN Reason: COPD traMADol HCL 50 mg PO Q6H PRN PRN Reason: Moderate To Severe Pain (4-10) Ibuprofen [Motrin] 600 mg PO Q6H PRN PRN Reason: Pain methocarbamoL [Robaxin] 500 mg PO Q8H PRN PRN Reason: Pain Sertraline [Zoloft] 100 mg PO DAILY Buprenorphine [Butrans 15 MCG/HR] 1 patch TRANSDERM WE Fluticasone/Vilanterol [Breo Ellipta 200-25 Mcg Inhaler] 1 puff INHALATION RT-DAILY Aspirin EC [Ecotrin Low Dose] 81 mg PO DAILY Cetirizine HCl [Zyrtec] 10 mg PO HS Simethicone [Simethicone Chew] 80 mg PO Q4H PRN PRN Reason: GAS PAINS Meclizine [Antivert] 25 mg PO Q8H PRN PRN Reason: Vertigo Miconazole Nitrate [Lotrimin AF Powder] 1 applic TOPICAL BID Ascorbic Acid [Vitamin C] 500 mg PO BID Discharge Medication List Acetaminophen Tab [Tylenol] 650 mg PO Q6H PRN 07/22/22 [History] Albuterol Sulfate [Ventolin HFA] 2 puff INHALATION RT-Q6H PRN 07/22/22 [History] Aspirin EC [Ecotrin Low Dose] 81 mg PO DAILY 07/22/22 [History] Atorvastatin [Lipitor] 40 mg PO HS 07/22/22 [History] Buprenorphine [Butrans 15 MCG/HR] 1 patch TRANSDERM WE 07/22/22 [History] Colchicine 0.6 mg PO BID 07/22/22 [History] Famotidine [Pepcid] 20 mg PO DAILY 07/22/22 [History] Fluticasone/Vilanterol [Breo Ellipta 200-25 Mcg Inhaler] 1 puff INHALATION RT- DAILY 07/22/22 [History] Furosemide [Lasix] 40 mg PO DAILY 07/22/22 [History] Ibuprofen [Motrin] 600 mg PO Q6H PRN 07/22/22 [History] Melatonin 10 mg PO HS 07/22/22 [History] Menthol [Biofreeze] 1 applic TOPICAL Q4H PRN 07/22/22 [History] Montelukast [Singulair] 10 mg PO HS 07/22/22 [History] Multivitamins, Thera [Multivitamin (formulary)] 1 tab PO DAILY 07/22/22 [History] Potassium Chloride ER [K-Dur 20] 20 meq PO DAILY 07/22/22 [History] Sennosides/Docusate Sodium [Senna Plus 8.6-50 mg Tablet] 1 tab PO DAILY PRN 07/22/22 [History] Sertraline [Zoloft] 50 mg PO DAILY 07/22/22 [History] Sertraline [Zoloft] 100 mg PO DAILY 07/22/22 [History] Topiramate [Topamax] 150 mg PO HS 07/22/22 [History] methocarbamoL [Robaxin] 500 mg PO Q8H PRN 07/22/22 [History] polyethylene glycoL 3350 [Miralax] 17 gm PO DAILY PRN 07/22/22 [History] traMADol HCL 50 mg PO Q6H PRN 07/22/22 [History] Ascorbic Acid [Vitamin C] 500 mg PO BID 10/19/22 [History] Cetirizine HCl [Zyrtec] 10 mg PO HS 10/19/22 [History] Mag Hydrox/Aluminum Hyd/Simeth [Mylanta Maximum Strength Liq] 20 ml PO Q6H PRN 10/19/22 [History] Magnesium Hydroxide [Milk of Magnesia] 2,400 mg PO DAILY PRN 10/19/22 [History] Meclizine [Antivert] 25 mg PO Q8H PRN 10/19/22 [History] Miconazole Nitrate [Lotrimin AF Powder] 1 applic TOPICAL BID 10/19/22 [History] Oxybutynin Chloride [oxyBUTYnin chloride ER] 20 mg PO DAILY 10/19/22 [History] Promethazine HCl 12.5 mg PO Q6H PRN 10/19/22 [History] Simethicone [Simethicone Chew] 80 mg PO Q4H PRN 10/19/22 [History] clonazePAM [KlonoPIN] 1 mg PO TID 10/19/22 [History] lamoTRIgine [LaMICtal] 150 mg PO DAILY 10/19/22 [History] lisinopriL [Zestril] 10 mg PO DAILY 10/19/22 [History] Follow up Appointment(s)/Referral(s): Jade Avina MD [STAFF PHYSICIAN] - 1 Week Patient Instructions/Handouts: GERD (Gastroesophageal Reflux Disease) (DC) Activity/Diet/Wound Care/Special Instructions: Activity: As tolerated. Take breaks as needed. Diet: Recommend structured weight loss program. Follow heart healthy, low fat and carb consistent diet. Special Instructions: Take all of your medications as directed and remember to keep all of your doctor's appointments and follow-up as needed. Recommend outpatient follow-up with senior piping designer to schedule outpatient EGD for further evaluation of GERD. Thank you for allowing us to participate in your care, it was truly a pleasure having you for our patient!!! Discharge Disposition: TRANSFER TO SNF/ECF
[2022-10-20] MEDS ORDERED: MAG HYDROX/AL HYDROX/SIMETH 30 ML, HYOSCYAMINE ELIXIR 10 ML, LIDOCAINE VISCOUS 10 ML PO ONE ×3 (13:00)
[2022-10-20] MEDS: traMADol 50 MG TAB PO PRN (13:30)
== END 2022-10-20 18:02 ==
LOC: EC 00:04 → 6NMEDSUR 07:58
PROVIDERS: ADMIT Family Medicine; ATTEND Family Medicine
DX: R07.89 Other chest pain (principal); R79.89 Other specified abnormal findings of blood chemistry; R94.31 Abnormal electrocardiogram [ECG] [EKG]; J44.9 Chronic obstructive pulmonary disease, unspecified; I11.0 Hypertensive heart disease with heart failure; I50.9 Heart failure, unspecified; I45.10 Unspecified right bundle-branch block; E78.00 Pure hypercholesterolemia, unspecified; M10.9 Gout, unspecified; I27.20 Pulmonary hypertension, unspecified; K57.90 Diverticulosis of intestine, part unspecified, without perforation or abscess without bleeding; K21.9 Gastro-esophageal reflux disease without esophagitis; R14.2 Eructation; R11.0 Nausea; G89.29 Other chronic pain; M54.9 Dorsalgia, unspecified; F31.9 Bipolar disorder, unspecified; F41.9 Anxiety disorder, unspecified; E66.01 Morbid (severe) obesity due to excess calories; Z68.43 Body mass index [BMI] 50.0-59.9, adult; Z79.82 Long term (current) use of aspirin; Z79.51 Long term (current) use of inhaled steroids; Z79.899 Other long term (current) drug therapy; Z86.19 Personal history of other infectious and parasitic diseases; Z87.891 Personal history of nicotine dependence
CPT/HCPCS: 96372 ×2; 99285; 36415; 94640; 93005; 97162; 97166; 85379; 83880; 80061; 80053; 83735; 84484; 85025; 85610; 85730; 71046; 78580; G0378 ×2; C8929; A9540; Q9950; J1644 ×2; 93306